=== PATIENT | male | born 1995 | race Caucasian/White ===

== ENCOUNTER 2017-01-02 13:04 | Emergency (ER) | payer OTHER ==
[~2017-01-02] VITALS: Ht 175.3 cm; Wt 78.8 kg
[2017-01-02 13:12] VITALS: BP 126/76
== END 2017-01-02 13:51 | disposition home or self-care (01) ==
LOC: ED 13:49
DX: H00.014 Hordeolum externum left upper eyelid (principal)
CPT/HCPCS: 99283